=== PATIENT | male | born 1965 | race Caucasian/White ===

== ENCOUNTER → 2023-06-13 | Outpatient (CLI) | payer OTHER ==
--- NOTE | 2023-06-14 10:10 | CT ---
EXAMINATION TYPE: CT wrist RT wo con DATE OF EXAM: 06/13/2023 COMPARISON: None HISTORY: RT wrist contusion. Possible scaphoid Fx. CT DLP: 151.[address] of the right wrist with reconstruction imaging. TECHNIQUE: Unenhanced CT of the right wrist was performed with bone and soft tissue window settings s ubmitted in the axial coronal and sagittal planes. At a separate workstation 3-[id number] TR imaging was obta ined. FINDINGS: There is a small chip fracture involving the dorsal aspect of the lunate seen on axial image 39 seque nce 3, sagittal image 32 sequence 7 and coronal image 23 sequence 6 dorsal aspect of the scaphoid dem onstrates what appears to be nonacute cortical irregularity. Correlate clinically with point tenderne ss. Scaphoid waist is intact. There are couple tiny punctate ossific densities measuring 2 mm each at the scapholunate ligament closer to the scaphoid dorsal aspect. No definite donor site is seen and m ay be chronic in nature. No additional acute fractures are seen at this time. Mild degenerative narro wing radiocarpal joint space. There is evidence of chondrocalcinosis of the triangular fibrocartilage . IMPRESSION: 1. Small virtually nondisplaced chip fracture involving the dorsal aspect of the lunate as discussed above. 2. Probable chronic injury involving the dorsal aspect of the scaphoid however clinical correlation w ith point tenderness is advised. Scaphoid waist is intact. 3. Degenerative changes
== END | disposition home or self-care (01) ==
LOC: RADCTMAIN 15:17
PROVIDERS: ATTEND Orthopaedic Surgery
DX: S60.211A Contusion of right wrist, initial encounter (principal); S62.124A Nondisplaced fracture of lunate [semilunar], right wrist, initial encounter for closed fracture; M19.031 Primary osteoarthritis, right wrist; X58.XXXA Exposure to other specified factors, initial encounter

== ENCOUNTER → 2024-02-27 | Outpatient (CLI) | payer OTHER | END | disposition home or self-care (01) | LOC: RADXRMAIN 11:42 | PROVIDERS: ATTEND Family Medicine | DX: Z53.9 Procedure and treatment not carried out, unspecified reason (principal) ==

== ENCOUNTER → 2024-02-27 | Outpatient (CLI) | payer OTHER ==
--- NOTE | 2024-02-27 12:15 | XR ---
EXAMINATION TYPE: XR chest 2V DATE OF EXAM: 02/27/2024 COMPARISON: 11/05/2014 TECHNIQUE: PA and lateral views submitted. HISTORY: Presurgical testing FINDINGS: The lungs are clear and there is no pneumothorax, pleural effusion, or focal pneumonia. Heart size normal and no overt failure. Osseous structures demonstrate hypertrophic and degenerative changes of the spine. Hyperexpansion of the lungs can be associated with asthma or COPD. Atherosclerotic change aorta. Calcifications soft tissue neck likely related to carotid artery calcification IMPRESSION: 1. No acute process.
[2024-02-27 12:35] LABS: Partial Thromboplastin Time 25.4 sec (22.0-30.0); Prothrombin Time 11.1 sec (10.0-12.5)
[2024-02-27 15:20] LABS: Basophils # (A) 0.05 X 10*3/uL (0.00-0.10); Basophils % (A) 0.9 %; Eosinophils # (A) 0.38 X 10*3/uL (0.04-0.35); Eosinophils % (A) 6.5 %; HCT 42.3 % (39.6-50.0); HGB 13.8 g/dL (13.0-17.0); Lymphocytes # (A) 1.19 X 10*3/uL (0.90-5.00); Lymphocytes % (A) 20.3 %; MCH 31.7 pg (27.0-32.0); MCHC 32.6 g/dL (32.0-37.0); MCV 97.2 FL (80.0-97.0); Mean Platelet Volume 9.7 FL (9.5-12.2); Monocytes # (A) 0.73 X 10*3/uL (0.20-1.00); Monocytes % (A) 12.5 %; NRBC Per 100 WBC 0 X 10*3/uL (0.00-0.01); Neutrophils # (A) 3.45 X 10*3/uL (1.80-7.70); Neutrophils % (A) 58.9 %; Platelet Count 328 X 10*3/uL (140-440); RBC 4.35 X 10*6/uL (4.40-5.60); RDW 12.8 % (11.5-14.5); WBC 5.85 X 10*3/uL (4.50-10.00)
[2024-02-27 15:26] LABS: ALT 16 U/L (10-49); AST 19 U/L (14-35); Albumin 4.2 g/dL (3.8-4.9); Albumin/Globulin Ratio 2.33 Ratio (1.60-3.17); Alkaline Phosphatase 59 U/L (41-126); BUN/Creat Ratio 16.75 Ratio (12.00-20.00); Blood Urea Nitrogen 13.4 mg/dL (9.0-27.0); Calcium 9.9 mg/dL (8.7-10.3); Carbon Dioxide 29.2 mmol/L (21.6-31.8); Chloride 99 mmol/L (96-109); Globulin 1.8 g/dL (1.6-3.3); Glucose 81 mg/dL (70-110); Potassium 4.6 mmol/L (3.5-5.5); Sodium 137 mmol/L (135-145); Total Bilirubin 0.3 mg/dL (0.3-1.2)
[2024-02-27 15:42] LABS: Appearance,Urine Clear (Clear); Bilirubin,Urine Negative (Negative); Blood,Urine Negative (Negative); Color,Urine Yellow (Yellow); Ketones,Urine Negative (Negative); Nitrite,Urine Negative (Negative); Specific Gravity,Urine 1.006 (1.001-1.030); Urobilinogen,Urine 0.2 E.U./DL
== END | disposition home or self-care (01) ==
LOC: LABPAT 10:47
PROVIDERS: ATTEND Orthopaedic Surgery Orthopaedic Surgery of the Spine
DX: Z01.89 Encounter for other specified special examinations (principal); I49.3 Ventricular premature depolarization; M48.02 Spinal stenosis, cervical region; Z22.322 Carrier or suspected carrier of Methicillin resistant Staphylococcus aureus
CPT/HCPCS: 36415; 71046; 80053; 81003; 83036; 85025; 85610; 85730; 86850; 86900; 86901; 87070; 93005

== ENCOUNTER 2024-03-04 11:11 | Inpatient (IN) | payer OTHER ==
[2024-02-26 11:34] VITALS: BMI 22.8
[~2024-03-04 11:11] MED LIST: HYDROmorphone 0.5 MG/0.5 ML SYRINGE IVP PRN; LIDOCAINE 1% (10MG/ML) FOR IV START INTRADERMA PRN; MIDAZOLAM 2 MG/2 ML VIAL IV PRN
[2024-03-04] MEDS: LACTATED RINGERS 1,000 ML IV SCH (11:50)
[2024-03-04] MEDS: ONDANSETRON 4 MG/2 ML VIAL IVP ONE (11:51)
[2024-03-04] MEDS: VANCOMYCIN 1,000 MG in SODIUM CHLORIDE 0.9% 250 ML IVPB PRN (11:58)
[2024-03-04] MEDS ORDERED: ROCURONIUM 10 MG/ML (5 ML VIAL) IV ONE (12:38)
[2024-03-04] MEDS ORDERED: VASOPRESSIN 20 UNIT/ML 1 ML VIAL ONE (12:38)
[2024-03-04] MEDS ORDERED: MIDAZOLAM 2 MG/2 ML VIAL ONE (12:38)
[2024-03-04] MEDS ORDERED: KETAMINE HCL IN 0.9 % NACL 50 MG/5 ML SYRINGE ONE (12:38)
[2024-03-04] MEDS ORDERED: HYDROmorphone (PF) 1 MG/ML ONE (12:38)
[2024-03-04] MEDS ORDERED: DEXAMETHASONE SOD PHOSPHATE 10 MG/ML 1 ML VIAL ONE (12:38)
[2024-03-04] MEDS ORDERED: ePHEDrine 50 MG/ML 1 ML VIAL ONE (12:38)
[2024-03-04] MEDS ORDERED: PROPOFOL 10 MG/ML 20 ML VIAL IV ONE (12:38)
[2024-03-04] MEDS ORDERED: fentaNYL (PF) 50 MCG/ML 2 ML AMP ONE (12:38)
[2024-03-04] MEDS ORDERED: PHENYLEPHRINE-0.9% NACL SYG 1,000 MCG/10 ML SYRINGE ONE (12:38)
[2024-03-04] MEDS ORDERED: LIDOCAINE 1% INJ 10MG/ML (20 ML MDV) ONE (12:38)
[2024-03-04] MEDS ORDERED: SUCCINYLCHOLINE CHLORIDE 200 MG/10 ML VIAL IV ONE (12:38)
[2024-03-04] MEDS: LIDOCAINE 2%-EPI 1:100,000 20 ML VIAL SQ ONE ×2 (13:10)
[2024-03-04] MEDS: BUPIVACAINE (PF) 0.5% 30 ML VIAL SQ ONE ×2 (13:10)
[2024-03-04] MEDS: THROMBIN (BOVINE) 5,000 UNIT VIAL TOPICAL ONE (13:11)
[2024-03-04] MEDS: ceFAZolin 1,000 MG in SODIUM CHLORIDE 0.9% IRRIGATIO 1,000 ML IRRIGATION PRN (13:12)
[2024-03-04] MEDS: LACTATED RINGERS 1,000 ML IV ONE ×2 (13:39→14:28)
[2024-03-04] MEDS ORDERED: HYDROmorphone 0.5 MG/0.5 ML SYRINGE IVP PRN (15:55)
[2024-03-04] MEDS ORDERED: ONDANSETRON 4 MG/2 ML VIAL IVP PRN (15:55)
[2024-03-04] MEDS ORDERED: BENZOCAINE/MENTHOL LOZENG 1 EACH LOZENGE MUCOUS MEM PRN (15:55)
[2024-03-04] MEDS ORDERED: VANCOMYCIN IV PER PHARMACY 1 EACH MISC MISCELLANE PRN (16:00)
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
--- NOTE | 2024-03-04 16:45 | XR ---
EXAMINATION TYPE: XR cervical spine limited DATE OF EXAM: 03/04/2024 1:56 PM CLINICAL INDICATION:Male, 58 years old with history of CERVICAL STENOSIS; [facility] COMPARISON: 11/15/2014. TECHNIQUE: The cervical spine was imaged in frontal, lateral, and odontoid. FINDINGS: Endotracheal tube visualized. Surgical device at the C6-C7 disc space. The osseous structures show normal alignment without evidence of an acute fracture. There are osteoph ytes noted throughout the cervical spine on the anterior and lateral aspects of the vertebral bodies. The intervertebral disk spaces are narrowed at multiple levels Pedicles are intact. Soft tissues ar e within normal limits. The odontoid appears intact. IMPRESSION: 1. Surgical device at the C6-C7 disc space. No fracture or dislocation. 2. Mild degenerative disc disease changes of the cervical spine.
[2024-03-04] MEDS: DEXAMETHASONE SOD PHOSPHATE 4 MG/ML 1 ML VIAL IV ONE (17:40)
[2024-03-04] MEDS: SODIUM CHLORIDE 0.9% 1,000 ML IV SCH (17:41)
--- NOTE | 2024-03-04 17:56 | XR ---
EXAMINATION TYPE: XR cervical spine limited DATE OF EXAM: 03/04/2024 3:49 PM CLINICAL INDICATION:Male, 58 years old with history of Hardware placement; COMPARISON: 03/04/2024 TECHNIQUE: The cervical spine was imaged in frontal, lateral, and odontoid. FINDINGS: Post fixation changes to the spine now present. Hardware extends from C3 to C7. Hardware appears inta ct. Endotracheal tube in place. Discectomy at C3-C4 C4-C5 and C5-C6 and possibly C6-C7. Shoulder appe ars of C 67 evaluation. IMPRESSION: Postsurgical changes, no evidence for hardware failure.
[2024-03-04] MEDS: HYDROmorphone 1 MG/ML 1 ML SYRINGE IVP PRN (18:02)
[2024-03-04] MEDS: HYDROcodone/APAP 5-325MG 1 EACH TAB PO PRN (20:33)
[2024-03-04] MEDS: CYCLOBENZAPRINE 10 MG TAB PO PRN (20:33)
[2024-03-04] MEDS: VANCOMYCIN 1,000 MG in SODIUM CHLORIDE 0.9% 250 ML IVPB ONE (23:47)
[2024-03-05 06:54] VITALS: BP 114/86; PULSE 94; RESP 15; TEMP 98.3
[2024-03-05] MEDS: SENNOSIDES-DOCUSATE SODIUM 1 EACH TAB PO SCH (08:17)
--- NOTE | 2024-03-05 09:56 | P.DS ---
Providers Date of admission: 03/04/24 11:11 Attending physician: Kimberly Flores Primary care physician: Raymundo Parker [facility] [place] Hospital Course: The patient presented on the day of admission as per their operative note. He has severe cervical stenosis with cervical myelopathy and upper extremity lower extremity weakness. He underwent his surgery as per his operative note for anterior cervical decompression with discectomy and fusion C3-4 C4-5 C5-6 and C6-7. He feels his legs are already doing better postop day 1 of. He has been up and moving around. His pains been controlled with medications. He is swallowing well. Physical Exam The incision site is clean dry and intact. There is no erythema no drainage. There is no purulence no evidence of infection. His neck is soft and supple. Abdomen soft and nontender. Chest has good excursion with deep inspiration and expiration. The patient has active and passive range of motion intact at the upper and lower extremities. There is no acute change in neurologic status. He is able to move his hands and feet. He feels his legs are moving better. Hospital Course Postoperative day 1 status post anterior cervical decompression with discectomy at C3-4 C4-5 C5-6 C6-7 for his cervical myelopathy with severe cervical stenosis and upper and lower extremity weakness. The patient feels that he is doing well has made improvement already. The patient has been making good progress postoperatively. They have completed the prophylactic antibiotics without any signs or symptoms of infection. The patient has been able to advance their diet, and is tolerating diet adequately. The pain was initially controlled with IV medications and is now controlled appropriately with oral medications. The patient has been able to increase their mobilization. The patient has progressed appropriately. I think they are in good stable condition for discharge today. They will be sent home with appropriate prescriptions. I answered their questions to the best of my ability in a language that they can understand and they are agreeable with the plan. They will follow up as directed in approximately 2 weeks or sooner if he is having problems. Patient Condition at Discharge: Good Plan - Discharge Summary Discharge Rx Participant: Yes New Discharge Prescriptions: New HYDROcodone/APAP 5-325MG [[place] 5-325] 1 tab PO Q6HR PRN 7 Days #28 tab PRN Reason: Pain No Action Fenofibrate [Tricor] 54 mg PO QAM Acetaminophen with Codeine [Tylenol w/codeine #4] 1 each PO DAILY PRN PRN Reason: Pain Cyclobenzaprine [Flexeril] 10 mg PO HS Dextroamphetamine/Amphetamine [Adderall] 80 mg PO QAM traZODone HCL 100 mg PO HS Simvastatin 10 mg PO QAM lisinopriL [Zestril] 10 mg PO HS Tamsulosin [Flomax] 0.4 mg PO QAM Ibuprofen 1,000 mg PO TID PRN PRN Reason: Pain Discharge Medication List Acetaminophen with Codeine [Tylenol w/codeine #4] 1 each PO DAILY PRN 11/05/14 [History] Fenofibrate [Tricor] 54 mg PO QAM 11/05/14 [History] Cyclobenzaprine [Flexeril] 10 mg PO HS 02/26/24 [History] Dextroamphetamine/Amphetamine [Adderall] 80 mg PO QAM 02/26/24 [History] Ibuprofen 1,000 mg PO TID PRN 02/26/24 [History] Simvastatin 10 mg PO QAM 02/26/24 [History] Tamsulosin [Flomax] 0.4 mg PO QAM 02/26/24 [History] lisinopriL [Zestril] 10 mg PO HS 02/26/24 [History] traZODone HCL 100 mg PO HS 02/26/24 [History] HYDROcodone/APAP 5-325MG [[place] 5-325] 1 tab PO Q6HR PRN 7 Days #28 tab 03/05/24 [Rx] Follow up Appointment(s)/Referral(s): Kimberly Flores DO [Doctor of Osteopathic Medicine] - 2 Weeks (As scheduled) Patient Instructions/Handouts: *Surgery [facility] - ([facility]) Cervical Surgery Discharge Instructions Activity/Diet/Wound Care/Special Instructions: Keep site clean. May shower with waterproof Tegaderm intact. Do not soak in a tub. After 72 hours postoperatively, patient May remove dressing and then may shower with area uncovered. Leave glue intact and allow it to fray off on its own. May ambulate as tolerated. Avoid heavy or rigorous activity. No repetitive bending twisting or lifting. No overhead work. Discharge Disposition: HOME SELF-CARE
== END 2024-03-05 11:26 | disposition home or self-care (01) | DRG 472 ==
LOC: 2ORMAIN 11:11 → 4SSUR 17:01
PROVIDERS: ADMIT Orthopaedic Surgery Orthopaedic Surgery of the Spine; ATTEND Orthopaedic Surgery Orthopaedic Surgery of the Spine
PROC: 0RB30ZZ Excision of Cervical Vertebral Disc, Open Approach (ICD-10-PCS; 2024-03-04)
PROC: 01N10ZZ Release Cervical Nerve, Open Approach (ICD-10-PCS; 2024-03-04)
PROC: 4A11X4G Monitoring of Peripheral Nervous Electrical Activity, Intraoperative, External Approach (ICD-10-PCS; 2024-03-04)
PROC: 0RG20A0 Fusion of 2 or more Cervical Vertebral Joints with Interbody Fusion Device, Anterior Approach, Anterior Column, Open Approach (ICD-10-PCS; principal; 2024-03-04 13:00)
DX: M96.0 Pseudarthrosis after fusion or arthrodesis (principal); M50.01 Cervical disc disorder with myelopathy, high cervical region; M48.02 Spinal stenosis, cervical region; M25.78 Osteophyte, vertebrae; I10 Essential (primary) hypertension; E78.5 Hyperlipidemia, unspecified
CPT/HCPCS: 72040

== ENCOUNTER → 2024-10-12 | Outpatient (CLI) | payer OTHER ==
[2024-10-12 15:37] LABS: ALT 17 U/L (10-49); AST 18 U/L (14-35); Albumin 4.2 g/dL (3.8-4.9); Albumin/Globulin Ratio 2.21 Ratio (1.60-3.17); Alkaline Phosphatase 71 U/L (41-126); BUN/Creat Ratio 15.12 Ratio (12.00-20.00); Blood Urea Nitrogen 12.1 mg/dL (9.0-27.0); Calcium 9.4 mg/dL (8.7-10.3); Carbon Dioxide 29.1 mmol/L (21.6-31.8); Chloride 101 mmol/L (96-109); Chol/HDL Ratio 1.76 Ratio; Globulin 1.9 g/dL (1.6-3.3); Glucose 93 mg/dL (70-110); LDL Cholesterol,Calculated 58.5 mg/dL (0.0-131.0); Potassium 4.5 mmol/L (3.5-5.5); Sodium 139 mmol/L (135-145); Total Bilirubin 0.2 mg/dL (0.3-1.2); Total Protein 6.1 g/dL (6.2-8.2); VLDL Calculation 11.98 mg/dL (5.00-40.00)
== END | disposition home or self-care (01) ==
LOC: LABWHC1 12:03
PROVIDERS: ATTEND Family Medicine
DX: E78.5 Hyperlipidemia, unspecified (principal)
CPT/HCPCS: 36415; 80053; 80061